=== PATIENT | female | born 1935 | race Caucasian/White ===

== ENCOUNTER 2018-03-05 04:53 | Observation (INO) ==
--- NOTE | 2018-03-05 05:04 | Emergency Department Note ---
Disposition Clinical Impression: TIA (transient ischemic attack) Disposition: Admitted As Inpatient Condition: Fair Neuro HPI - General Chief Complaint: ED Neuro Symptoms/Deficit Stated Complaint: "head is swimming" Time Seen by Provider: 03/05/18 04:54 Nursing Notes Reviewed: Yes Vital Signs Reviewed: Yes - History of Present Illness HPI Narrative: 82-year-old female presents emergency department with concern for stroke from daughter. Patient's last known well was 10:00 last night. Patient has history of stroke in the past. She has received TPA in June 2017. Currently on Eliquis. Reporting that she woke up this morning and stated that she felt like her head was spinning. Patient does have known history of vertigo. Daughter went directly to patient. Noted that there was some right arm weakness as well as right-sided facial droop. Patient has baseline dysarthria. The dizziness is reported as a room spinning that is intermittent but patient is not currently having any now. - Related Data Home Medications: Home Medications Medication Instructions Recorded Confirmed amLODIPine [Norvasc] 5 mg PO DAILY 07/06/17 03/05/18 Apixaban [Eliquis] 5 mg PO BID 03/05/18 03/05/18 Atorvastatin [Lipitor] 20 mg PO HS 03/05/18 03/05/18 Citalopram Hydrobromide 10 mg PO BID 03/05/18 03/05/18 [Citalopram HBr] Metoprolol [Lopressor] 25 mg PO BID 03/05/18 03/05/18 Allergies/Adverse Reactions: Allergies Allergy/AdvReac Type Severity Reaction Status Date / Time No Known Allergies Allergy Verified 07/19/15 22:23 All systems ED: reviewed and negative except as stated. Review of Systems: As Per HPI Constitutional: Denies: fever Cardiovascular: Denies: chest pain Respiratory: Denies: dyspnea Gastrointestinal: Denies: nausea, vomiting Genitourinary: Denies: urgency Neurological: Denies: headache Past Medical History - Past Medical History Medical history: Reports: atrial fibrillation, CVA, hyperlipidemia, hypertension Surgical history: Reports: other Psychiatric history: Reports: depression - Social History Smoking Status: Never smoker Smokeless Tobacco Status: No Alcohol use: Reports: rarely Drug use: Reports: none Physical Exam - General Limitations: no limitations General appearance: alert, in no apparent distress - Head Head exam: normocephalic - Eye Eye exam: Present: EOMI - ENT ENT exam: normal oropharynx - Neck Neck exam: Present: trachea midline - Chest Chest inspection: Present: normal inspection, symmetric chest wall rise - Respiratory Respiratory exam: Present: normal lung sounds bilaterally. Absent: respiratory distress, accessory muscle use - Cardiovascular Cardiovascular exam: Present: regular rate, normal rhythm, normal heart sounds - Abdominal Exam Abdominal exam: Present: soft, Non-Tender, rigidity. Absent: distention, rebound - Extremities Exam Extremities exam: Present: normal capillary refill - Neurological Exam Neurological exam: Present: alert, oriented X3, other (Patient has GCS 15, right -sided facial droop, right upper extremities weakness.) - Psychiatric Psychiatric exam: Present: normal affect, normal mood - Skin Skin exam: Present: warm, dry, intact, normal color. Absent: rash Course Vital Signs Temperature 97.6 F 03/05/18 04:57 Pulse Rate 57 03/05/18 04:57 Respiratory Rate 20 03/05/18 04:57 Blood Pressure 163/80 03/05/18 04:57 O2 Sat by Pulse Oximetry 97 03/05/18 04:57 Temperature 97.6 F 03/05/18 04:57 Pulse Rate 58 03/05/18 06:56 Respiratory Rate 20 03/05/18 06:56 Blood Pressure 137/88 03/05/18 06:56 O2 Sat by Pulse Oximetry 99 03/05/18 06:00 Oxygen Delivery Oxygen Delivery Room Air Neuro Symptoms/Deficit - MDM Narrative Medical decision making narrative: 82-year-old female presents to the emergency department with concern for stroke. NIH of 6, however, most deficits are from baseline stroke. The only new deficits today or right-sided facial droop as well as right upper extremity weakness. Patient's last known well was at 10 PM yesterday, approximately 7 hours prior to arrival. Patient also on Eliquis. Patient not a candidate for TPA both for time and due to being on blood thinning medications. Obtain CT scan of head, obtain labs, plan to admit patient. Patient's head CT did not reveal any acute hemorrhage or acute ischemia. Chest x-ray revealed a negative portable chest radiology. Labs were within normal limits. Patient's symptoms resolved while she was in the emergency department. Patient has most likely had a TIA. Patient admitted and currently waiting the neurologist, Dr. Li to patient's recommendations on whether to start any antiplatelet medications at this time. Chest X-Ray 03/05/18 05:05 IMPRESSION: Negative portable chest. D/ / Varinder Morel MD / Varinder Morel MD Interpreting Provider: Varinder Morel MD Head CT 03/05/18 05:06 IMPRESSION: No acute hemorrhage or definite evidence for acute ischemia. D/ / Varinder Morel MD / Varinder Morel MD Interpreting Provider: Varinder Morel MD Vital Signs Temperature 97.6 F 03/05/18 04:57 Pulse Rate 57 03/05/18 04:57 Respiratory Rate 20 03/05/18 04:57 Blood Pressure 163/80 03/05/18 04:57 O2 Sat by Pulse Oximetry 97 03/05/18 04:57 Temperature 97.6 F 03/05/18 04:57 Pulse Rate 56 03/05/18 06:00 Respiratory Rate 16 03/05/18 06:00 Blood Pressure 151/80 03/05/18 06:00 O2 Sat by Pulse Oximetry 99 03/05/18 06:00 Oxygen Delivery Oxygen Delivery Room Air - Lab Data Result diagrams: 03/05/18 05:43 03/05/18 05:43 Lab Results 03/05/18 03/05/18 03/05/18 Range/Units 04:57 05:38 05:43 WBC 8.4 (4.3-11.1) K/mcL RBC 4.36 (3.82-4.97) M/mcL Hgb 13.1 (11.5-15.4) g/dL Hct 40.3 (35.3-44.9) % MCV 92.4 (83.0-100.0) fL MCH 30.0 (28.0-33.3) pg MCHC 32.5 (31.6-35.5) g/dL RDW 13.7 (11.5-14.5) % Plt Count 182 (140-400) K/mcL MPV 11.0 (9.4-12.4) fL PT (9.4-12.1) Seconds INR APTT (26.0-36.0) Seconds Sodium (136-145) mEq/L Potassium (3.5-5.1) mEq/L Chloride (98-107) mEq/L Carbon Dioxide (23-29) mEq/L BUN (8-23) mg/dL Creatinine (0.60-1.20) mg/dL Est GFR ( Amer) (> 60) Est GFR (Non-Af Amer) (> 60) BUN/Creatinine Ratio (6-26) Glucose (70-105) mg/dL POC Glucose 88 (70-99) mg/dL Calculated Osmolality (280-300) Calcium (8.6-10.3) mg/dL Troponin I (< 0.04) ng/mL Urine Color Yellow (Yellow) Urine Clarity Clear (Clear) Urine pH 7.5 (5.0-8.0) pH Units Ur Specific [place] 1.009 L (1.010-1.025) Urine Protein Negative (Neg-Trace) mg/dL Urine Glucose (UA) Normal (Normal) mg/dL Urine Ketones Negative (Negative) mg/dL Urine Blood Negative (Negative) Urine Nitrite Negative (Negative) Urine Bilirubin Negative (Negative) Urine Urobilinogen Normal (Normal) mg/dL Ur Leukocyte Esterase Negative (Negative) Ur Culture Indicated? NO (NO) 03/05/18 03/05/18 Range/Units 05:43 05:43 WBC (4.3-11.1) K/mcL RBC (3.82-4.97) M/mcL Hgb (11.5-15.4) g/dL Hct (35.3-44.9) % MCV (83.0-100.0) fL MCH (28.0-33.3) pg MCHC (31.6-35.5) g/dL RDW (11.5-14.5) % Plt Count (140-400) K/mcL MPV (9.4-12.4) fL PT 15.8 H (9.4-12.1) Seconds INR 1.4 APTT 34.2 (26.0-36.0) Seconds Sodium 136 (136-145) mEq/L Potassium 4.2 (3.5-5.1) mEq/L Chloride 103 (98-107) mEq/L Carbon Dioxide 28 (23-29) mEq/L BUN 19 (8-23) mg/dL Creatinine 0.71 (0.60-1.20) mg/dL Est GFR ( Amer) > 60 (> 60) Est GFR (Non-Af Amer) > 60 (> 60) BUN/Creatinine Ratio 27 H (6-26) Glucose 98 (70-105) mg/dL POC Glucose (70-99) mg/dL Calculated Osmolality 284 (280-300) Calcium 9.5 (8.6-10.3) mg/dL Troponin I < 0.03 (< 0.04) ng/mL Urine Color (Yellow) Urine Clarity (Clear) Urine pH (5.0-8.0) pH Units Ur Specific [place] (1.010-1.025) Urine Protein (Neg-Trace) mg/dL Urine Glucose (UA) (Normal) mg/dL Urine Ketones (Negative) mg/dL Urine Blood (Negative) Urine Nitrite (Negative) Urine Bilirubin (Negative) Urine Urobilinogen (Normal) mg/dL Ur Leukocyte Esterase (Negative) Ur Culture Indicated? (NO) - EKG Data EKG attestation: Yes I reviewed and interpreted this EKG. EKG results narrative: 4:54 Heart rate 60 bpm, NM interval 237 ms, QRS duration 97 ms, QT 454 ms, left axis deviation. Sinus rhythm with first-degree AV block. No evidence of any ischemic ST changes on this EKG. NIH Stroke Scale - Level of Consciousness LOC: Alert - LOC Questions LOC Questions: Answers both correctly - LOC Commands LOC Commands: Performs both correctly - Best Gaze Best Gaze: Normal - Visual Visual: No visual loss - Facial Palsy Facial Palsy: Partial, total, or near-total paralysis of lower face - Motor Arms Motor Arm-Left: No drift for 10 seconds Motor Arm-Right: Drift, does NOT hit bed - Motor Legs Motor Leg-Left: No drift for 5 seconds Motor Leg-Right: No drift for 5 seconds - Limb Ataxia Limb Ataxia: Absent of affected limb too weak to perform exam - Sensory Sensory: Normal - Best Language Best Language: Mild to moderate aphasia. Examiner can identify picture from response (baseline from previous stroke) - Dysarthria Dysarthria: Severe, slurred speech unintelligible or mute (baseline from previous stroke) - Extinction and Inattention Extinction and Inattention: Normal - NIHSS Total Score NIHSS Total Score: 6 TPA Checklist - LKW: 3-4.5 hrs Add. Warnings/Precautions Patient/family understanding: The patient/family members have been counseled and understood the risk, benefit , and alternatives of treatment.
[2018-03-05 05:45] LABS: Bilirubin,Urine Negative (Negative); Blood,Urine Negative (Negative); Clarity,Urine Clear (Clear); Color,Urine Yellow (Yellow); Glucose,Urine (UA) Normal (Normal); Ketones,Urine Negative (Negative); Leukocyte Esterase,Urine Negative (Negative); Nitrite,Urine Negative (Negative); PH,Urine 7.5 pH Units (5.0-8.0); Protein,Urine Negative (Neg-Trace); Specific Gravity,Urine 1.009 (1.010-1.025); Urobilinogen,Urine Normal (Normal)
[2018-03-05 05:58] LABS: Hematocrit 40.3 % (35.3-44.9); Hemoglobin 13.1 g/dL (11.5-15.4); Mean Corpuscular HGB Conc 32.5 g/dL (31.6-35.5); Mean Corpuscular Volume 92.4 fL (83.0-100.0); Platelet Count 182 K/mcL (140-400); Red Blood Count 4.36 M/mcL (3.82-4.97); Red Cell Distribution Width 13.7 % (11.5-14.5)
[2018-03-05 06:03] LABS: INR 1.4; Prothrombin Time 15.8 Seconds (9.4-12.1)
[2018-03-05 06:06] LABS: Activated Partial Thrombo Time 34.2 Seconds (26.0-36.0)
[2018-03-05 06:20] LABS: BUN/Creatinine Ratio 27 (6-26); Blood Urea Nitrogen 19 mg/dL (8-23); Calcium 9.5 mg/dL (8.6-10.3); Carbon Dioxide 28 mEq/L (23-29); Chloride 103 mEq/L (98-107); Glucose 98 mg/dL (70-105); Osmolality,Calculated 284 (280-300); Potassium 4.2 mEq/L (3.5-5.1); Sodium 136 mEq/L (136-145); eGFR For Non-African Americans > 60 (> 60)
[2018-03-05 06:21] LABS: Troponin I < 0.03 ng/mL (< 0.04)
--- NOTE | 2018-03-05 07:09 | Emergency Department Note ---
Disposition Clinical Impression: TIA (transient ischemic attack) Disposition: Admitted As Inpatient Condition: Fair General Adult HPI - General Chief complaint: ED Dizziness Stated complaint: "head is swimming" Time Seen by Provider: 03/05/18 04:54 Source: patient, family Limitations: no limitations Nursing Notes Reviewed: Yes Vital Signs Reviewed: Yes - History of Present Illness Pain Scale: 0 - Related Data Home Medications Medication Instructions Recorded Confirmed amLODIPine [Norvasc] 5 mg PO DAILY 07/06/17 03/05/18 Apixaban [Eliquis] 5 mg PO BID 03/05/18 03/05/18 Atorvastatin [Lipitor] 20 mg PO HS 03/05/18 03/05/18 Citalopram Hydrobromide 10 mg PO BID 03/05/18 03/05/18 [Citalopram HBr] Metoprolol [Lopressor] 25 mg PO BID 03/05/18 03/05/18 Allergies Allergy/AdvReac Type Severity Reaction Status Date / Time No Known Allergies Allergy Verified 07/19/15 22:23 Constitutional: Denies: fever Cardiovascular: Denies: chest pain Respiratory: Denies: dyspnea Gastrointestinal: Denies: nausea, vomiting Genitourinary: Denies: urgency Neurological: Denies: headache Past Medical History - Past Medical History Medical history: Reports: atrial fibrillation, CVA, hyperlipidemia, hypertension Surgical history: Reports: other Psychiatric history: Reports: depression - Social History Smoking Status: Never smoker Smokeless Tobacco Status: No Alcohol use: Reports: rarely Drug use: Reports: none Physical Exam - General Limitations: no limitations General appearance: alert, in no apparent distress Course Vital Signs Temperature 97.6 F 03/05/18 04:57 Pulse Rate 57 03/05/18 04:57 Respiratory Rate 20 03/05/18 04:57 Blood Pressure 163/80 03/05/18 04:57 O2 Sat by Pulse Oximetry 97 03/05/18 04:57 Temperature 97.6 F 03/05/18 04:57 Pulse Rate 58 03/05/18 06:56 Respiratory Rate 20 03/05/18 06:56 Blood Pressure 137/88 03/05/18 06:56 O2 Sat by Pulse Oximetry 99 03/05/18 06:00 Oxygen Delivery Oxygen Delivery Room Air Medical Decision Making - Lab Data Lab results reviewed: Yes I reviewed the patient's lab results. Result diagrams: 03/05/18 05:43 03/05/18 05:43 Lab Results 03/05/18 03/05/18 03/05/18 Range/Units 04:57 05:38 05:43 WBC 8.4 (4.3-11.1) K/mcL RBC 4.36 (3.82-4.97) M/mcL Hgb 13.1 (11.5-15.4) g/dL Hct 40.3 (35.3-44.9) % MCV 92.4 (83.0-100.0) fL MCH 30.0 (28.0-33.3) pg MCHC 32.5 (31.6-35.5) g/dL RDW 13.7 (11.5-14.5) % Plt Count 182 (140-400) K/mcL MPV 11.0 (9.4-12.4) fL PT (9.4-12.1) Seconds INR APTT (26.0-36.0) Seconds Sodium (136-145) mEq/L Potassium (3.5-5.1) mEq/L Chloride (98-107) mEq/L Carbon Dioxide (23-29) mEq/L BUN (8-23) mg/dL Creatinine (0.60-1.20) mg/dL Est GFR ( Amer) (> 60) Est GFR (Non-Af Amer) (> 60) BUN/Creatinine Ratio (6-26) Glucose (70-105) mg/dL POC Glucose 88 (70-99) mg/dL Calculated Osmolality (280-300) Calcium (8.6-10.3) mg/dL Troponin I (< 0.04) ng/mL Urine Color Yellow (Yellow) Urine Clarity Clear (Clear) Urine pH 7.5 (5.0-8.0) pH Units Ur Specific [place] 1.009 L (1.010-1.025) Urine Protein Negative (Neg-Trace) mg/dL Urine Glucose (UA) Normal (Normal) mg/dL Urine Ketones Negative (Negative) mg/dL Urine Blood Negative (Negative) Urine Nitrite Negative (Negative) Urine Bilirubin Negative (Negative) Urine Urobilinogen Normal (Normal) mg/dL Ur Leukocyte Esterase Negative (Negative) Ur Culture Indicated? NO (NO) 03/05/18 03/05/18 Range/Units 05:43 05:43 WBC (4.3-11.1) K/mcL RBC (3.82-4.97) M/mcL Hgb (11.5-15.4) g/dL Hct (35.3-44.9) % MCV (83.0-100.0) fL MCH (28.0-33.3) pg MCHC (31.6-35.5) g/dL RDW (11.5-14.5) % Plt Count (140-400) K/mcL MPV (9.4-12.4) fL PT 15.8 H (9.4-12.1) Seconds INR 1.4 APTT 34.2 (26.0-36.0) Seconds Sodium 136 (136-145) mEq/L Potassium 4.2 (3.5-5.1) mEq/L Chloride 103 (98-107) mEq/L Carbon Dioxide 28 (23-29) mEq/L BUN 19 (8-23) mg/dL Creatinine 0.71 (0.60-1.20) mg/dL Est GFR ( Amer) > 60 (> 60) Est GFR (Non-Af Amer) > 60 (> 60) BUN/Creatinine Ratio 27 H (6-26) Glucose 98 (70-105) mg/dL POC Glucose (70-99) mg/dL Calculated Osmolality 284 (280-300) Calcium 9.5 (8.6-10.3) mg/dL Troponin I < 0.03 (< 0.04) ng/mL Urine Color (Yellow) Urine Clarity (Clear) Urine pH (5.0-8.0) pH Units Ur Specific [place] (1.010-1.025) Urine Protein (Neg-Trace) mg/dL Urine Glucose (UA) (Normal) mg/dL Urine Ketones (Negative) mg/dL Urine Blood (Negative) Urine Nitrite (Negative) Urine Bilirubin (Negative) Urine Urobilinogen (Normal) mg/dL Ur Leukocyte Esterase (Negative) Ur Culture Indicated? (NO) - Radiology Data Radiology results reviewed: Yes I reviewed the patient's radiology results. Chest X-Ray 03/05/18 05:05 IMPRESSION: Negative portable chest. D/ / Varinder Morel MD / Varinder Morel MD Interpreting Provider: Varinder Morel MD Head CT 03/05/18 05:06 IMPRESSION: No acute hemorrhage or definite evidence for acute ischemia. D/ / Varinder Morel MD / Varinder Morel MD Interpreting Provider: Varinder Morle MD - EKG Data EKG #1 EKG attestation: Yes I reviewed and interpreted this EKG. EKG results narrative: EKG shows a sinus rhythm with first-degree AV block with ventricular rate is 60. No acute ST segment elevation or depression. Attestation Statement - Attestation Attestation: I, Jose Cook MD, personally evaluated this patient and discussed their management with the resident physician. I reviewed the resident's note and agree with the documented findings, medical decision making, and plan of care. Patient is an 82-year-old female with a previous history of a stroke in June of this year with residual expressive aphasia. Last known well was about 10 PM this evening. She apparently called her daughter during the night and was having difficulties. Daughter reports the expressive aphasia his baseline but that she was having weakness in her right arm and complained of her head feeling funny. Daughter brought her in for evaluation. On arrival here she did have weakness and drift to the right arm and some right facial droop. However after she had been here for a while the weakness in the right arm completely resolved in the right facial droop markedly improved. On examination patient is a well-developed well-nourished elderly female in no acute distress. She is alert and able to answer questions with yes no answers but has expressive aphasia. She has equal livestock agent strength bilaterally. Mild right facial droop at time of my exam. Breath sounds are clear and equal bilaterally. Heart regular rate and rhythm. Abdomen soft and nontender with normal bowel sounds. Labs reviewed. No acute changes on EKG. No acute abnormality on head CT. The neurologist mixer diamond powder, Dr. Moreno, was consulted and did not recommend any aspirin or Plavix at this time as patient is already on Eliquis. He will consult on the patient as an inpatient. The hospitalist, Dr. Garcia, was consulted and accepted admission of the patient.
--- NOTE | 2018-03-05 07:13 | Emergency Department Note ---
Disposition Clinical Impression: TIA (transient ischemic attack) Disposition: Admitted As Inpatient Condition: Fair General Adult HPI - General Chief complaint: ED Dizziness Stated complaint: "head is swimming" Time Seen by Provider: 03/05/18 04:54 Source: patient, family Limitations: no limitations - History of Present Illness Pain Scale: 0 - Related Data Home Medications Medication Instructions Recorded Confirmed amLODIPine [Norvasc] 5 mg PO DAILY 07/06/17 03/05/18 Apixaban [Eliquis] 5 mg PO BID 03/05/18 03/05/18 Atorvastatin [Lipitor] 20 mg PO HS 03/05/18 03/05/18 Citalopram Hydrobromide 10 mg PO BID 03/05/18 03/05/18 [Citalopram HBr] Metoprolol [Lopressor] 25 mg PO BID 03/05/18 03/05/18 Allergies Allergy/AdvReac Type Severity Reaction Status Date / Time No Known Allergies Allergy Verified 07/19/15 22:23 Constitutional: Denies: fever Cardiovascular: Denies: chest pain Respiratory: Denies: dyspnea Gastrointestinal: Denies: nausea, vomiting Genitourinary: Denies: urgency Neurological: Denies: headache Past Medical History - Past Medical History Medical history: Reports: atrial fibrillation, CVA, hyperlipidemia, hypertension Surgical history: Reports: other Psychiatric history: Reports: depression - Social History Smoking Status: Never smoker Smokeless Tobacco Status: No Alcohol use: Reports: rarely Drug use: Reports: none Physical Exam - General Limitations: no limitations General appearance: alert, in no apparent distress Course - Reevaluation(s) Reevaluation #1: Patient was signed out to me from the nighttime team pending neurology consult. Patient had already been admitted to the hospital service for TIA workup and CVA rule out. Neurological symptoms had resolved. Dr. Moreno did not recommend giving the patient aspirin or Plavix in addition to the Eliquis that she is on. States that he would be okay with getting a neurological workup and then they will decide on an inpatient basis. Time: 07:11 Vital Signs Temperature 97.6 F 03/05/18 04:57 Pulse Rate 57 03/05/18 04:57 Respiratory Rate 20 03/05/18 04:57 Blood Pressure 163/80 03/05/18 04:57 O2 Sat by Pulse Oximetry 97 03/05/18 04:57 Temperature 97.6 F 03/05/18 04:57 Pulse Rate 58 03/05/18 06:56 Respiratory Rate 20 03/05/18 06:56 Blood Pressure 137/88 03/05/18 06:56 O2 Sat by Pulse Oximetry 99 03/05/18 06:00 Oxygen Delivery Oxygen Delivery Room Air Medical Decision Making - Lab Data Result diagrams: 03/05/18 05:43 03/05/18 05:43 Lab Results 03/05/18 03/05/18 03/05/18 Range/Units 04:57 05:38 05:43 WBC 8.4 (4.3-11.1) K/mcL RBC 4.36 (3.82-4.97) M/mcL Hgb 13.1 (11.5-15.4) g/dL Hct 40.3 (35.3-44.9) % MCV 92.4 (83.0-100.0) fL MCH 30.0 (28.0-33.3) pg MCHC 32.5 (31.6-35.5) g/dL RDW 13.7 (11.5-14.5) % Plt Count 182 (140-400) K/mcL MPV 11.0 (9.4-12.4) fL PT (9.4-12.1) Seconds INR APTT (26.0-36.0) Seconds Sodium (136-145) mEq/L Potassium (3.5-5.1) mEq/L Chloride (98-107) mEq/L Carbon Dioxide (23-29) mEq/L BUN (8-23) mg/dL Creatinine (0.60-1.20) mg/dL Est GFR ( Amer) (> 60) Est GFR (Non-Af Amer) (> 60) BUN/Creatinine Ratio (6-26) Glucose (70-105) mg/dL POC Glucose 88 (70-99) mg/dL Calculated Osmolality (280-300) Calcium (8.6-10.3) mg/dL Troponin I (< 0.04) ng/mL Urine Color Yellow (Yellow) Urine Clarity Clear (Clear) Urine pH 7.5 (5.0-8.0) pH Units Ur Specific [place] 1.009 L (1.010-1.025) Urine Protein Negative (Neg-Trace) mg/dL Urine Glucose (UA) Normal (Normal) mg/dL Urine Ketones Negative (Negative) mg/dL Urine Blood Negative (Negative) Urine Nitrite Negative (Negative) Urine Bilirubin Negative (Negative) Urine Urobilinogen Normal (Normal) mg/dL Ur Leukocyte Esterase Negative (Negative) Ur Culture Indicated? NO (NO) 03/05/18 03/05/18 Range/Units 05:43 05:43 WBC (4.3-11.1) K/mcL RBC (3.82-4.97) M/mcL Hgb (11.5-15.4) g/dL Hct (35.3-44.9) % MCV (83.0-100.0) fL MCH (28.0-33.3) pg MCHC (31.6-35.5) g/dL RDW (11.5-14.5) % Plt Count (140-400) K/mcL MPV (9.4-12.4) fL PT 15.8 H (9.4-12.1) Seconds INR 1.4 APTT 34.2 (26.0-36.0) Seconds Sodium 136 (136-145) mEq/L Potassium 4.2 (3.5-5.1) mEq/L Chloride 103 (98-107) mEq/L Carbon Dioxide 28 (23-29) mEq/L BUN 19 (8-23) mg/dL Creatinine 0.71 (0.60-1.20) mg/dL Est GFR ( Amer) > 60 (> 60) Est GFR (Non-Af Amer) > 60 (> 60) BUN/Creatinine Ratio 27 H (6-26) Glucose 98 (70-105) mg/dL POC Glucose (70-99) mg/dL Calculated Osmolality 284 (280-300) Calcium 9.5 (8.6-10.3) mg/dL Troponin I < 0.03 (< 0.04) ng/mL Urine Color (Yellow) Urine Clarity (Clear) Urine pH (5.0-8.0) pH Units Ur Specific [place] (1.010-1.025) Urine Protein (Neg-Trace) mg/dL Urine Glucose (UA) (Normal) mg/dL Urine Ketones (Negative) mg/dL Urine Blood (Negative) Urine Nitrite (Negative) Urine Bilirubin (Negative) Urine Urobilinogen (Normal) mg/dL Ur Leukocyte Esterase (Negative) Ur Culture Indicated? (NO)
--- NOTE | 2018-03-05 07:39 | Internal Med History&Physical ---
Date of Encounter: 03/05/18 Time of Encounter: 07:32 Internal Medicine - H&P: HPI Chief complaint: right sided weakaness Admitted From: Home Plans for Post Hospital Care: Home History of present illness: Ms. Eric is a 82 year old female with history of atrial fibrillation on Eliquis, previous CVA with residual Dysarthia, hypertension and hyperlipidemia presented to the ED with complaint of right-sided weakness and facial droop. As per patient and daughter at bedside she was known well at her baseline at 10 PM last night. She reports that she woke up earlier in the morning and felt that she had right-sided weakness and facial droop and decided to call her daughter. As per daughter she visited the patient and found that she has right arm weakness and as well as right-sided facial droop in addition to her baseline dysarthria. Patient was also complaining of room spinning around her when daughter visited her which has now resolved. As per daughter she does have history of CVA and received TPA in June 2017 and from that CVA she has residual dysarthria. She reports compliance to all her medications and all her symptoms have resolved while she has been in the emergency department. She denies fever, chills, chest pain, shortness of breath, palpitations, nausea , vomiting, diarrhea, loss of consciousness, head trauma or syncope. In the emergency department basic labs were performed which were unremarkable. UA was negative, troponin was negative. CT head performed and showed No acute hemorrhage or definite evidence for acute ischemia. Neurology consulted by the ED physician, " Dr. Moreno did not recommend giving the patient aspirin or Plavix in addition to the Eliquis that she is on. States that he would be okay with getting a neurological workup and then they will decide on an inpatient basis." She was endorsed for admission for further workup for TIA. Past Med Surg Social Fam HX - Past Medical History Medical history: atrial fibrillation, CVA, hyperlipidemia, hypertension Additional medical history: Anxiety Psychiatric history: depression - Past Surgical History Surgical History: other Additional surgical history: Partial Hysterectomy. L hip replacement - Social History Smoking Status: Never smoker Smokeless Tobacco Status: No Alcohol use: rarely Drug use: none Internal Medicine - H&P: Meds amLODIPine [Norvasc] 5 mg PO DAILY 07/06/17 [History] Apixaban [Eliquis] 5 mg PO BID 03/05/18 [History] Atorvastatin [Lipitor] 20 mg PO HS 03/05/18 [History] Citalopram Hydrobromide [Citalopram HBr] 10 mg PO BID 03/05/18 [History] Metoprolol [Lopressor] 25 mg PO BID 03/05/18 [History] 3 Allergy/AdvReac Type Severity Reaction Status Date / Time No Known Allergies Allergy Verified 07/19/15 22:23 All Systems PM: review of systems was performed and is negative for pertinent findings except as documented above in the HPI. - Constitutional Vitals: Temp Pulse Resp BP Pulse Ox 97.6 F 58 20 137/88 99 03/05/18 04:57 03/05/18 06:56 03/05/18 06:56 03/05/18 06:56 03/05/18 06:00 Exam: General: Patient is alert, oriented, no acute distress, Head: atraumatic, normocephalic, Eye: normal appearance, PERRL, no scleral icterus, no conjunctival injection ENT: mucous membranes moist, normal external ear exam Neck: normal inspection, trachea midline, full ROM, no carotid bruits Chest: normal inspection, symmetric chest rise Respiratory: Good respiratory effort. Bilateral breath sounds are clear without wheezing, crackles, or rhonchi. Cardiovascular: Regular rate and rhythm. s1 and s2 No clicks, rubs, gallops, or murmors. Abdomen: Bowel sounds present normoactive x-4 quadrants. Abdomen is soft, nondistended. no Epigastric tenderness. No guarding or rebound. No organomegaly noted musculoskeletal: Spontaneously moving all extremities. no edema, no calf tenderness Skin: warm, dry, intact. Neuro: Alert and oriented x. 2, she is oriented to place and person but not time but this is her baseline as per daughter. Sensation light touch intact. Cranial nerves 2-12 is intact. Dysarthria from previous stroke. rapid hand movements intact, [id number] intact, Psych: Patient's affect is normal Internal Med - H&P Results - Labs CBC & Chem 7: 03/05/18 05:43 03/05/18 05:43 - Assessment and plan (1) TIA (transient ischemic attack) Current Visit: Yes Status: Acute Assessment and plan: right sided weakness and facial droop now resolved most likely secondary to TIA R/O stroke No TPA was administered Telemetry monitoring Dr. Moreno from neurology was consulted by the ED physician recommended to continue Eliquis and hold off aspirin and Plavix EKG stat Continue Lipitor Continue Eliquis Neuro checks as per protocol MR MRI head Carotid duplex TTE with bubble study Rehabilitation/PT evaluation Lipid panel, A1c, TSH Keep systolic BP less than 220 and diastolic BP less than 120 Maintain LDLs < 75 DVT prophylaxis with Eliquis Fall, aspiration, seizure precautions (2) Hypertension Current Visit: No Status: Acute Assessment and plan: Continue home medications if not contraindicated Qualifiers: Hypertension type: essential hypertension Qualified Code(s): I10 - Essential (primary) hypertension (3) PAF (paroxysmal atrial fibrillation) Current Visit: Yes Status: Acute Assessment and plan: History of atrial fibrillation on Eliquis Troponin in the ED negative We will continue home dose metoprolol and Eliquis Echocardiogram ordered as above as above EKG stat Telemetry monitoring (4) DVT prophylaxis Current Visit: No Status: Acute Assessment and plan: Patient is RD on Eliquis - Time Spent With Patient Total time spent is greater than 50% in coordination of care (as documented) at patient's floor/unit and/or counseling patient:
[2018-03-05] MEDS: Apixaban 5 MG TABLET PO SCH ×2 (09:18→20:49)
[2018-03-05] MEDS: amLODIPine 5 MG TABLET PO SCH (09:18)
[2018-03-05 09:44] LABS: Thyroid Stimulating Hormone 4.332 mcIU/mL (0.340-5.600)
--- NOTE | 2018-03-05 13:19 | Neurology - Consult Note ---
Date of Encounter: 03/05/18 Time of Encounter: 13:15 Assessment and Plan (1) TIA (transient ischemic attack) Current Visit: Yes Status: Acute Patient developed transient worsening right facial droop and right sided weakness totally resolved within few hours and the weakness is confined to the area of deficits from previous CVA so this could be complicated by BP fluctuation, medical conditions that can affect cerebral perfusion. Another possibility would partial seizure resulting in Cory's paralysis. MRI of brain showed no evidence of new stroke. Awaiting Echo and carotid artery duplex study. Discussed with the family and patient regarding the management. Would not consider empirical antiepileptic therapy at this time. Would keep her on Eliquis only and not to add Aspirin at this time. Her neurological condition is back to normal and She can be discharged home from neurology perspective. Please follow up with Carotid artery duplex and echo results. Please call if any questions. Total time spend with the case is approximately 70 minutes and more than 50% were used to discussed the case with the patient and family members. All questions answered. History of Present Illness Chief complaint: dizziness, worsening right side weakness HPI: Ms. Eric is a 82 year old female with PMH significant for HTN, left MCA infarct during 06/2017 who presented to ER after found to have worsening right side weakness and right facial droop. She lives alone and she called her daughter this morning due to development of dizziness, as vertigo sensation. Daughter went to check on her and found her to have right arm weakness. She had left MCA infarct 06/2017 and ended up with right sided weakness and slurred speech. By the time she arrived the hospital her weakness improved. At the time of the interview, her MRI of brain completed and showed no acute infarct, but old left MCA infarct. Patient's neurological status resolved. Right arm is 5/5 in strength now. NO evidence of tongue biting or urinary incontinence reported. Past Med Surg Social Fam HX - Past Medical History Medical history: atrial fibrillation, CVA, hyperlipidemia, hypertension Additional medical history: Anxiety Psychiatric history: depression - Past Surgical History Surgical History: other Additional surgical history: Partial Hysterectomy. L hip replacement - Social History Smoking Status: Never smoker Smokeless Tobacco Status: No Alcohol use: rarely Drug use: none Medications and Allergies amLODIPine [Norvasc] 5 mg PO DAILY 07/06/17 [History] Apixaban [Eliquis] 5 mg PO BID 03/05/18 [History] Atorvastatin [Lipitor] 20 mg PO HS 03/05/18 [History] Citalopram Hydrobromide [Citalopram HBr] 10 mg PO BID 03/05/18 [History] Metoprolol [Lopressor] 25 mg PO BID 03/05/18 [History] 3 Allergy/AdvReac Type Severity Reaction Status Date / Time No Known Allergies Allergy Verified 07/19/15 22:23 All Systems: The remainder of the systems were reviewed and are negative Physical Examination - Vital Signs Vital Signs: Initial Vital Signs Temp Pulse Resp BP Pulse Ox 97.6 F 57 20 163/80 97 03/05/18 04:57 03/05/18 04:57 03/05/18 04:57 03/05/18 04:57 03/05/18 04:57 - Constitutional General appearance: comfortable - Neurologic Detailed motor examination: full strength in all major muscle groups Motor examination - right side: 5/5: deltoids, biceps, triceps, wrist flexion, wrist extension, data governance consultant, hip flexors, tibialis Anterior, quadriceps, toe extension (EHL), plantarflexion Motor examination - left side: 5/5: deltoids, biceps, triceps, wrist flexion, wrist extension, hip flexors, data governance consultant, quadriceps, tibialis Anterior, toe extension (EHL), plantarflexion Detailed sensory examination: intact Posture: other (NOne) Reflex and gait examination: other (Gait not tested) Reflexes: Biceps: 2+, Triceps: 2+, Brachioradialis: 2+, Patella: 2+, Achilles: 2 + Mental Status Examination: awake, alert, oriented to person, oriented to place, oriented to time, follows commands appropriately, answers questions appropriately, no agnosia, no aphasia, no aproxia, lucid, expressive aphasia ( Expressive dysphasia noted) Cranial nerve examination: PERRL, EOMI, visual jarvis intact, corneal reflexes brisk symmetrically, sensory to face intact, mastication intact, no facial asymmetry is present, no dysarthria, hearing is intact symmetrically, soft palate elevates bilaterally upon phonation, gag reflex intact, flexes SCM and trapezius muscles symmetrically with full power, tongue protrudes midline, no atrophy or facial fasiculations present Cerebellar examination: no dysmetria, performs finger to nose and heel to maguire symmetrically without ataxia, no gait ataxia, no truncal ataxia, no difficulty with rapid alternating movements Results - Laboratory Findings CBC and BMP: 03/05/18 05:43 03/05/18 05:43 Abnormal lab findings: Abnormal lab results PT 15.8 Seconds (9.4-12.1) H 03/05/18 05:43 BUN/Creatinine Ratio 27 (6-26) H 03/05/18 05:43 Ur Specific [place] 1.009 (1.010-1.025) L 03/05/18 05:38 Consult Discharge Plan - Plan Referrals: Yesenia Mcghee, RESTAURANT ASSISTANT [Primary Care Provider] -
[2018-03-06 08:16] LABS: Hematocrit 38.3 % (35.3-44.9); Hemoglobin 12.3 g/dL (11.5-15.4); Mean Corpuscular HGB Conc 32.1 g/dL (31.6-35.5); Mean Corpuscular Hemoglobin 29.9 pg (28.0-33.3); Mean Corpuscular Volume 93.2 fL (83.0-100.0); Mean Platelet Volume 11.3 fL (9.4-12.4); Platelet Count 178 K/mcL (140-400); Red Blood Count 4.11 M/mcL (3.82-4.97); Red Cell Distribution Width 13.9 % (11.5-14.5)
[2018-03-06 08:19] LABS: INR 1.6; Prothrombin Time 18.5 Seconds (9.4-12.1)
[2018-03-06 08:35] LABS: Estimated Average Glucose 114 mg/dl; Hemoglobin A1C 5.6 %
[2018-03-06 08:37] LABS: Troponin I < 0.03 ng/mL (< 0.04)
[2018-03-06 08:42] LABS: BUN/Creatinine Ratio 33 (6-26); Blood Urea Nitrogen 26 mg/dL (8-23); Carbon Dioxide 27 mEq/L (23-29); Chloride 107 mEq/L (98-107); Chol/HDL Ratio 2.5 (0-4.9); Cholesterol 110 mg/dL (< 200); Glucose 96 mg/dL (70-105); HDL Cholesterol 44 mg/dL (40-59); LDL Cholesterol,Calculated 58 mg/dL (0-99); Osmolality,Calculated 291 (280-300); Potassium 4.2 mEq/L (3.5-5.1); Sodium 138 mEq/L (136-145); Triglycerides 42 mg/dL (< 150); eGFR For Non-African Americans > 60 (> 60)
[2018-03-06] MEDS: Apixaban 5 MG TABLET PO SCH (09:10)
[2018-03-06] MEDS: amLODIPine 5 MG TABLET PO SCH (09:11)
[2018-03-06 11:24] VITALS: BP 124/70
--- NOTE | 2018-03-06 12:24 | Discharge Summary ---
- NOTES TO OUTPATIENT PROVIDER Notes to Outpatient Provider: Had TIA sx Cartoid artery duplex with Bilateral carotid system has nonstenotic plaque. Echo with no PFO, EF 60 65% Normal LV chamber size, wall thickness and function. Mild left ventricular diastolic dysfunction Orders not resulted at time of discharge: Pending orders 03/05/18 10:20 EKG [ECG 12 lead ECG] [ECG] Routine Date of Encounter: 03/06/18 Time of Encounter: 12:21 - Discharge Diagnosis (1) Hypertension Priority: Secondary Status: Acute Qualifiers: Hypertension type: essential hypertension Qualified Code(s): I10 - Essential (primary) hypertension (2) TIA (transient ischemic attack) Priority: Primary Status: Acute (3) PAF (paroxysmal atrial fibrillation) Priority: Secondary Status: Acute Hospital course: Ms. Eric is a 82 year old female past medical history of hypertension left MCA infarct occurring 06/2017 has residual deficits of right-sided weakness and right-sided facial droop as well as aphasia. Patient was brought to the emergency department after family felt she was extensively worsening right- sided weakness and facial droop. She lives alone and she called her daughter after developing dizziness and vertigo sensation. By time she arrived at the emergency department her symptoms had resolved. CAT scan was performed which was negative for any acute intracranial abnormalities MRI was completed with no acute infarct patient was seen by neurology -unsure if she experienced a partial seizure resulting in Cory's paralysis does not recommend any antiepileptic therapy at this time. Echo completed with EF of 60% no PFO carotid Dopplers with nonstenotic plaque bilaterally. Neurology recommending no aspirin continue with Eliquis patient has been ambulating in the hallway she is neurologically at her baseline. Vital signs are stable advised family to follow-up with PCP which she states she only has a appointment. Patient will be discharged home with daughter Discharge discussed with: patient, family - Time Spent with Patient Total time spent providing and/or coordinating discharge services: - Discharge Medications Home Medications: amLODIPine [Norvasc] 5 mg PO DAILY 07/06/17 [History] Apixaban [Eliquis] 5 mg PO BID 03/05/18 [History] Atorvastatin [Lipitor] 20 mg PO HS 03/05/18 [History] Citalopram Hydrobromide [Citalopram HBr] 10 mg PO BID 03/05/18 [History] Metoprolol [Lopressor] 25 mg PO BID 03/05/18 [History] Allergies/Adverse Reactions: 3 Allergy/AdvReac Type Severity Reaction Status Date / Time No Known Allergies Allergy Verified 07/19/15 22:23 Date of admission: 03/05/18 06:48 Primary care physician: Yesenia Mcghee CNP Consults: 03/05/18 07:49 Consult to Case Management [CONS] Routine Comment: Consult to Nutrition [CONS] Routine Comment: Consulting Provider: NUTRITION Reason for Dietary Consult: PO Supplementation OT [Consult to Occupational Therapy] [CONS] Routine Comment: Evaluate, develop and implement POC Reason for Consult: disposition Does patient have active BEDREST order?: No Is patient medically & hemodynamically stable?: Yes Patient assessed for mobility or mobilized this visit?: Yes 03/05/18 07:50 Consult to Physical Therapy [CONS] Routine Comment: Evaluate, develop and implement POC Reason for Consult: dispostion Does patient have active BEDREST order?: No Is patient medically & hemodynamically stable?: Yes Patient assessed for mobility or mobilized this visit?: Yes 03/05/18 09:10 Consult to Manager Architectural [CONS] Routine Reason for SW Consult: POA/living will paperwork, possible home health Discharging clinician: Lulu Bone Anticipated date of discharge: 03/06/18 - Constitutional Vitals: Temp Pulse Resp BP Pulse Ox 97.9 F 50 15 124/70 91 03/06/18 11:23 03/06/18 11:23 03/06/18 11:23 03/06/18 11:23 03/06/18 11:23 General appearance: Present: A&O X 2 Exam: General: Patient is alert, oriented, no acute distress, Head: atraumatic, normocephalic, Eye: normal appearance, PERRL, no scleral icterus, no conjunctival injection ENT: mucous membranes moist, normal external ear exam Neck: normal inspection, trachea midline, full ROM, no carotid bruits Chest: normal inspection, symmetric chest rise Respiratory: Good respiratory effort. Bilateral breath sounds are clear without wheezing, crackles, or rhonchi. Cardiovascular: Regular rate and rhythm. s1 and s2 No clicks, rubs, gallops, or murmors. Abdomen: Bowel sounds present normoactive x-4 quadrants. Abdomen is soft, nondistended. no Epigastric tenderness. No guarding or rebound. No organomegaly noted musculoskeletal: Spontaneously moving all extremities. no edema, no calf tenderness Skin: warm, dry, intact. Neuro: Alert and oriented x. 2, she is oriented to place and person but not time but this is her baseline as per daughter. Sensation light touch intact. Cranial nerves 2-12 is intact. Dysarthria from previous stroke. rapid hand movements intact, [id number] intact, Psych: Patient's affect is normal - Head Head exam: Present: atraumatic, normocephalic - Eye Eye exam: Present: PERRL, conjuntiva pink, sclera anicteric Pupils: Present: PERRL - Neck Neck exam general surgery: Present: supple, trachea midline. Absent: lymphadenopathy - Respiratory Respiratory exam: Present: CTAB. Absent: accessory muscle use, rales, rhonchi, wheezes - Cardiovascular Cardiovascular exam: Present: RRR, +S1, +S2. Absent: diastolic murmur, gallop, rubs, systolic murmur - Extremities Exam Extremities exam: Present: warm, radial pulses palpable and symmetrical. Absent : calf tenderness, cyanotic, pedal edema - Neurological Exam Neurological exam: Present: CN II-XII intact, no focal deficits, facial droop, speech deficit. Absent: pronater drift - Skin Skin exam: Present: dry, intact - Patient Status Disposition: Home, Self-Care Condition: Fair Functional capacity at discharge: uses cane/walker Overall status at discharge: patient is back to baseline - Discharge Instructions Instructions: Transient Ischemic Attack (DC), Atrial Fibrillation (DC), Chronic Hypertension (DC) Follow Up With: Yesenia Mcghee GRADALL OPERATOR [Primary Care Provider] - (Please call and follow up within 5-7 days. ) - Diet and Activity Activity: increase activity as tolerated Diet: advance to your usual diet
--- NOTE | 2018-03-07 13:10 | Electrocardiograph Report ---
[place] [id number] Test Date: 2018-03-05 Pat Name: Dolores Eric Department: 113 Room: 3B32 Gender: F Cost Estimating Engineer: : 1935 Requested By: [id number] Order Number: [id number] Reading MD: Zoie Vaca Measurements Intervals [place] Rate: 53 P: 119 NH: 254 QRS: -18 QRSD: 88 T: 7 QT: 435 QTc: 419 Interpretive Statements SINUS BRADYCARDIA WITH FIRST DEGREE AV BLOCK Electronically Signed On 03-07-2018 13:08:32 EDT by Zoie Vaca
--- NOTE | 2018-03-07 13:16 | Electrocardiograph Report ---
[address] [place], [place] [address] Test Date: 2018-03-05 Pat Name: Dolores Eric Department: EXAM2 Room: 3B32 Gender: F Hazardous Substances Scientist: : 1935 Requested By: Gilbert Luna Order Number: [id number] Reading MD: Zoie Vaca Measurements Intervals [place] Rate: 60 P: 50 VT: 237 QRS: -21 QRSD: 97 T: 5 QT: 454 QTc: 454 Interpretive Statements Sinus rhythm Prolonged VT interval Borderline left axis deviation Consider anterior infarct Electronically Signed On 03-07-2018 13:14:22 EDT by Zoie Vaca
== END 2018-03-06 13:52 | disposition home or self-care (01) ==
LOC: 3BNU 04:53 → EMEROOARM 04:53 → 3BNU 06:54
PROVIDERS: ADMIT Internal Medicine; ATTEND Internal Medicine

== ENCOUNTER 2019-10-25 11:06 | Observation (INO) ==
[2019-10-25] MEDS ORDERED: Aspirin 81 MG TAB.CHEW PO ONE (11:08)
[2019-10-25 11:32] LABS: Basophils % 0.6 %; Eosinophils # 0.1 K/mcL (0.0-0.6); Eosinophils % 1.1 %; Hematocrit 41.1 % (35.3-44.9); Hemoglobin 13.2 g/dL (11.5-15.4); Immature Granulocytes % 0.2 % (0-4); Lymphocytes # 1.7 K/mcL (0.6-4.6); Lymphocytes % 27.3 %; Mean Corpuscular HGB Conc 32.1 g/dL (31.6-35.5); Mean Corpuscular Hemoglobin 30.8 pg (28.0-33.3); Monocytes # 0.6 K/mcL (0.0-1.3); Monocytes % 9.2 %; Neutrophils # 3.9 K/mcL (1.6-8.9); Platelet Count 204 K/mcL (140-400); Red Blood Count 4.28 M/mcL (3.82-4.97); Red Cell Distribution Width 13.6 % (11.5-14.5); Segmented Neutrophils % 61.6 %; White Blood Count 6.4 K/mcL (4.3-11.1)
[2019-10-25 11:34] LABS: INR 1.8; Prothrombin Time 20.1 Seconds (9.4-12.1)
[2019-10-25 12:50] LABS: Alanine Aminotransferase 11 Units/L (7-52); Albumin 4.1 g/dL (3.5-5.7); Albumin/Globulin Ratio 1.6 (1.1-2.2); Alkaline Phosphatase 62 Units/L (34-104); Aspartate Amino Transferase 18 Units/L (13-39); BUN/Creatinine Ratio 27 (6-26); Bilirubin,Direct 0.1 mg/dL (0.0-0.2); Bilirubin,Indirect 0.5 mg/dL (0.0-1.0); Bilirubin,Total 0.6 mg/dL (0.3-1.0); Blood Urea Nitrogen 23 mg/dL (8-23); Calcium 9.1 mg/dL (8.6-10.3); Carbon Dioxide 27 mEq/L (23-29); Chloride 104 mEq/L (98-107); Globulin 2.6 g/dL (2.4-3.5); Glucose 97 mg/dL (70-105); Lipase 39 Units/L (11-82); Osmolality,Calculated 286 (280-300); Potassium 3.9 mEq/L (3.5-5.1); Sodium 136 mEq/L (136-145); Total Protein 6.7 g/dL (6.4-8.9); Troponin I < 0.03 ng/mL (< 0.04); eGFR For African Americans > 60 (> 60); eGFR For Non-African Americans > 60 (> 60)
[2019-10-25 13:03] LABS: Bilirubin,Urine Negative (Negative); Blood,Urine Negative (Negative); Clarity,Urine Clear (Clear); Color,Urine Yellow (Yellow); Glucose,Urine (UA) Normal (Normal); Ketones,Urine Negative (Negative); Leukocyte Esterase,Urine Negative (Negative); Nitrite,Urine Negative (Negative); Protein,Urine Negative (Neg-Trace); Specific Gravity,Urine 1.011 (1.010-1.025); Urobilinogen,Urine Normal (Normal)
[2019-10-25] MEDS ORDERED: Naloxone 0.4 MG/ML INJ IVP PRN (14:18)
[2019-10-25] MEDS ORDERED: Nitroglycerin 0.4 MG TAB.SUBL SL PRN (14:42)
[2019-10-25 15:47] LABS: Chol/HDL Ratio 2.7 (0-4.9)
[2019-10-25 15:57] LABS: Estimated Average Glucose 120 mg/dl
[2019-10-25] MEDS: Apixaban 5 MG TABLET PO SCH (21:18)
[2019-10-26] MEDS ORDERED: Regadenoson 0.4 MG/5 ML SYRINGE IVP ONE (06:01)
[2019-10-26] MEDS ORDERED: amLODIPine 5 MG TABLET PO SCH (09:00)
[2019-10-26] MEDS: Apixaban 5 MG TABLET PO SCH (09:03)
[2019-10-26 10:45] VITALS: BP 109/63
== END 2019-10-26 15:07 | disposition home or self-care (01) ==
LOC: EMEROOARM 11:06 → 3BNU 11:06 → SUATTDRO 14:18 → 3BNU 15:44
PROVIDERS: ADMIT Student in an Organized Health Care Education/Training Program; ATTEND Internal Medicine